=== PATIENT | male | born 1960 | race Caucasian/White ===

== ENCOUNTER 2024-08-16 05:09 | Day surgery (SDC) | payer OTHER ==
[2024-08-15 16:17] LABS: BASOPHILS % (AUTO) 0.6 % (0-1); EOSINOPHILS # (AUTO) 0.2 X10'3 (0-0.9); EOSINOPHILS % (AUTO) 3.4 % (0-6); HEMATOCRIT 43.2 % (42.0-52.0); HEMOGLOBIN 14.2 g/dl (14.0-17.9); LYMPHOCYTES # (AUTO) 1.6 X10'3 (1.1-4.8); LYMPHOCYTES % (AUTO) 25.4 % (21-51); MEAN CORPUSCULAR HEMOGLOBIN 31.4 PG (27.0-31.0); MEAN CORPUSCULAR HGB CONC 32.9 g/dL (33.0-36.5); MEAN CORPUSCULAR VOLUME 95.5 FL (78-98); MEAN PLATELET VOLUME 10.5 FL (7.4-10.4); MONOCYTES # (AUTO) 0.4 X10'3 (0-0.9); NEUTROPHILS % (AUTO) 63.6 % (42-75); PLATELET COUNT 250 X10'3 (140-440); RED BLOOD COUNT 4.52 X10'6 (4.70-6.10); RED CELL DISTRIBUTION WIDTH 13.3 % (11.5-14.5); WHITE BLOOD COUNT 6.3 X10'3 (4.5-11.0)
[2024-08-15 16:35] LABS: ANION GAP 7 (8-16); BLOOD UREA NITROGEN 26 MG/DL (7-18); BUN/CREATININE RATIO 23.6 (10.0-20.0); CALCIUM 8.6 MG/DL (8.5-10.1); CHLORIDE 102 MMOL/L (99-107); CHOL/HDL RATIO 2.7 (0.00-4.99); CHOLESTEROL 229 MG/DL (0-200); GLUCOSE 196 MG/DL (70-104); HDL CHOLESTEROL 86 MG/DL (35-60); LDL CHOLESTEROL 119 MG/DL (50-100); SODIUM 139 MMOL/L (135-145); TOTAL CARBON DIOXIDE 30.1 MMOL/L (24-32); TRIGLYCERIDES 107 MG/DL (20-135); eGFR 68 ML/MIN
[~2024-08-16] VITALS: Ht 165.1 cm; Wt 72.0 kg
[2024-08-16] VITALS (8 sets, daily range): BP systolic 123–137; BP diastolic 62–77; PULSE 60–74; RESP 15–16; TEMP 98; O2SAT 95–100
[2024-08-16] MEDS ORDERED: LISI5TAB22 PO (05:32)
[2024-08-16] MEDS ORDERED: ASPI-611 PO (05:32)
[2024-08-16] MEDS ORDERED: NITR0.4T48 SL (05:32)
[2024-08-16] MEDS ORDERED: LIDOcaine 1% (10mg/ml) 2ml vial ONE (05:52)
[2024-08-16] MEDS ORDERED: fentaNYL/PF 50MCG/1 ML 2ML syringe ONE (05:52)
[2024-08-16] MEDS ORDERED: verapamil 2.5 mg/ml inj IV ONE (05:52)
[2024-08-16 05:53] LABS: APTT 25 SECONDS (22-32); PROTHROMBIN TIME 10.3 SECONDS (9.0-12.0)
[2024-08-16] MEDS ORDERED: midazolam 1 mg/ML 2ml injection ONE (05:53)
[2024-08-16] MEDS ORDERED: iohexol 350MG/ML 100ml bottle IV ONE ×2 (05:53→06:37)
[2024-08-16] MEDS ORDERED: heparin 1,000unit/ml 10ml vial 10 ML ONE (05:53)
[2024-08-16] MEDS ORDERED: nitroGLYCERIN 500mcg/5mL D5W 5 ML IV ONE (05:59)
[2024-08-16] MEDS: diphenhydrAMINE 25mg capsule PO PRN (06:07)
[2024-08-16] MEDS: normal saline 1,000 ML IV SCH (06:07)
[2024-08-16] MEDS: LORazepam 0.5 MG tablet PO PRN (06:07)
[2024-08-16] MEDS ORDERED: aspirin 325mg tablet ONE (06:45)
[2024-08-16] MEDS ORDERED: clopidogrel 300mg tablet ONE (06:45)
[2024-08-16] MEDS ORDERED: CLOP75TA34 PO (07:44)
[2024-08-16] MEDS ORDERED: ASPI81TA52 PO (07:44)
[2024-08-16] MEDS ORDERED: ATOR40TA PO (07:44)
[2024-08-16] MEDS ORDERED: ondansetron/PF 4mg/2ml inj IV PRN (07:45)
[2024-08-16] MEDS ORDERED: OXAZEpam 15mg capsule PO PRN (07:45)
[2024-08-16] MEDS ORDERED: proCHLORperazine 10 MG/2 ml inj IV PRN (07:45)
== END 2024-08-16 10:10 | disposition home or self-care (01) ==
LOC: SSTAY O 05:09
PROVIDERS: ATTEND Student in an Organized Health Care Education/Training Program
DX: R94.39 Abnormal result of other cardiovascular function study (principal); I25.110 Atherosclerotic heart disease of native coronary artery with unstable angina pectoris; I10 Essential (primary) hypertension; K21.9 Gastro-esophageal reflux disease without esophagitis; Z79.01 Long term (current) use of anticoagulants; Z79.899 Other long term (current) drug therapy
CPT/HCPCS: 36415; 80048; 80061; 85025; 85610; 85730; 93005; 93458; C1874; C9600; J1644; J2003; J2250; J3010; J3490; J7030; Q0163; Q9967; A6258; A6402; C1725; C1751; C1769; C1894